=== PATIENT | male | born 1965 | race Caucasian/White ===

== ENCOUNTER → 2018-05-14 | Day surgery (SDC) | payer OTHER ==
[~2018-05-14] MED LIST: FENTANYL CITRATE/PF 100MCG/2 ML INJ ONE; HYOSCYAMINE SULFATE 0.5 MG/ML AMP ONE; MIDAZOLAM HCL 2 MG/2 ML VIAL ONE; PANTOPRAZOLE 40 MG 10ML VIAL ONE; PROPOFOL IV EMULSION 10 MG/ML 50 ML VIAL ONE; SYMAX DUOTAB0.375 MG; SYMAX0.125 MG PO
[2018-05-14 09:45] VITALS: BP 105/77
--- NOTE | 2018-05-14 10:03 | Operative Report ---
DATE OF PROCEDURE: May 14, 2018 REFERRING PHYSICIAN: Dr. Damien Addison PROCEDURES PERFORMED 1. Esophagogastroduodenoscopy with biopsies. 2. Colonoscopy with polypectomy and biopsies. INDICATIONS FOR EGD: Dyspepsia. INDICATIONS FOR COLONOSCOPY: Colorectal cancer screening. MEDICATION: Patient was done under MAC. Please see anesthesiologist's note. PROCEDURE: With the patient in the left lateral decubitus position, the flexible fiberoptic Olympus gastroscope was introduced into the esophagus under direct visualization without any difficulty. There was some patchy erythema noted in the distal esophagus. Minute tongues of velvety red mucosa were noted to extend proximally from the GE junction. Biopsies were obtained to rule out Ellis's. An approximately 4-mm nodule was noted at the GE junction and that was biopsied. The scope was then advanced with ease into the stomach traversing a small hiatal hernia. Mucosa overlying the antrum revealed multiple erosions and some with overlying black exudate compatible with recent hemorrhage. Biopsies were obtained. The pylorus was of normal contour and shape. It was intubated with ease. The scope was advanced all the way to the 2nd portion of the duodenum. The scope was then withdrawn slowly. Mucosa overlying the proximal 2nd portion appeared to be within normal limits. There was a focal nodularity noted in the posterior wall of the duodenal bulb and biopsies were obtained. The scope was then withdrawn back into the stomach and retroflexed. The mucosa overlying the fundus and the cardia appeared to be within normal limits. The scope was then straightened out. The stomach was decompressed. The scope was subsequently withdrawn. Patient tolerated the procedure well. IMPRESSION 1. Distal esophagitis. 2. Rule out Ellis's esophagus. 3. Approximately, 4-mm nodule at the gastroesophageal junction, biopsied. 4. Small hiatal hernia. 5. Gastritis, erosive, antrum. Biopsies obtained and sent to stain for Helicobacter pylori. 6. Focal nodularity of posterior wall of duodenal bulb, biopsied. PLAN: Follow up histology. Initiate Protonix 40 mg 1 p.o. q.a.m. a.c. Patient was then turned around. After adequate lubrication of the anal canal, a flexible fiberoptic Olympus colonoscope was inserted into the rectum with ease, and a large of full circumferential mass was noted that started at approximately 4 cm from the anal verge and extended all the way to approximately 11 cm or just close to the rectosigmoid area. Biopsies were obtained. The scope was then advanced with ease all the way to the cecum. It was then withdrawn slowly. Mucosa overlying the cecum appeared to be within normal limits. An approximately 1.2 cm sessile polypoid lesion in the mid-ascending colon was removed piecemeal per snare electrocautery and polypectomy site was hemoclipped. The rest of the ascending appeared to be within normal limits. Diverticular disease was noted to be scattered in the transverse, descending and sigmoid colon. Again, the previously described large rectal mass was noted on the way out. The scope was retroflexed. The area around the dentate line grossly appeared to be within normal limits. The scope was then straightened out. It was subsequently withdrawn. Patient tolerated the procedure well. IMPRESSION 1. Approximately, 1.2 cm sessile lesion in the mid-ascending colon, removed piecemeal per snare electrocautery and polypectomy site was hemoclipped prophylactically. 2. Diverticulosis. 3. Rectal mass, full circumferential extending from approximately 4 cm from the anal verge to just below the rectosigmoid area. Biopsies were obtained. PLAN: Follow up histology. Patient will need a CT scan of the abdomen and pelvis. General surgical/oncology referrals. The patient will need a followup colonoscopy in 1 year after surgery. Job#: [id number] MARS cc:DAMIEN ADDISON DO
== END | disposition home or self-care (01) ==
LOC: OR 05:58
PROVIDERS: ATTEND Internal Medicine Gastroenterology
DX: C20 Malignant neoplasm of rectum (principal); D12.2 Benign neoplasm of ascending colon; K29.00 Acute gastritis without bleeding; K29.50 Unspecified chronic gastritis without bleeding; K29.80 Duodenitis without bleeding; K21.0 Gastro-esophageal reflux disease with esophagitis; K22.70 Barrett's esophagus without dysplasia; K59.00 Constipation, unspecified; K57.30 Diverticulosis of large intestine without perforation or abscess without bleeding; K44.9 Diaphragmatic hernia without obstruction or gangrene; F17.210 Nicotine dependence, cigarettes, uncomplicated; Z01.810 Encounter for preprocedural cardiovascular examination
CPT/HCPCS: 43239; 45380; 45385; 93005; J1980; J2250; 45378

== ENCOUNTER → 2018-05-17 | Outpatient (CLI) | payer OTHER ==
[~2018-05-17] MED LIST changes: +DIATRIZOATE MEGL/DIATRIZOA SOD 30 ML BTL PO ONE; -FENTANYL CITRATE/PF 100MCG/2 ML INJ ONE; -HYOSCYAMINE SULFATE 0.5 MG/ML AMP ONE; +IOPAMIDOL 370 MG/ML 200 ML INFUS..BTL INJ ONE; -MIDAZOLAM HCL 2 MG/2 ML VIAL ONE; -PANTOPRAZOLE 40 MG 10ML VIAL ONE; -PROPOFOL IV EMULSION 10 MG/ML 50 ML VIAL ONE; +SODIUM CHLORIDE 0.9% 50ML 50 ML ONE
--- NOTE | 2018-05-17 09:09 | Diagnostic Imaging Report ---
PROCEDURE: CT ABDOMEN AND PELVIS WITH CONTRAST TECHNIQUE: The abdomen and pelvis were scanned utilizing a multidetector helical scanner from the diaphragm to the lesser trochanter after the IV administration of 100 cc of Isovue 370 and the oral administration of Gastrografin. Coronal and sagittal multiplanar reformations were obtained. COMPARISON: None. INDICATIONS: MID ASCENDING COLON LESION FINDINGS: LOWER THORAX: 2 mm juxtapleural nodular opacity along the right lower lobe partially visualized. Lung bases are otherwise unremarkable. HEPATOBILIARY: No focal hepatic lesion or intrahepatic biliary ductal dilatation. The gallbladder is unremarkable. SPLEEN: No splenomegaly. PANCREAS: No focal masses or ductal dilatation. ADRENALS: Fullness of the left adrenal gland without discrete nodule. No right adrenal nodule. KIDNEYS/URETERS: Subcentimeter hypoattenuating lesion in the left kidney, too small to further characterize but likely represent a small cyst. No hydronephrosis, calculi, or gross mass lesion. PELVIC ORGANS/BLADDER: Urinary bladder, prostate, and seminal vesicles are unremarkable. Vasectomty clips. PERITONEUM / RETROPERITONEUM: No ascites. No pneumoperitoneum. LYMPH NODES: No lymphadenopathy by size criteria; however, there are a few mildly prominent lymph nodes in the mesorectal fat, measuring 6 mm (series 2 image 80 and 9 mm series 2 image 75) VESSELS: The abdominal aorta is non-aneurysmal. The major branch vessels are patent without significant stenosis. Mild atherosclerotic calcification of the infrarenal abdominal aorta. Portal vein and splenic vein are patent. GI TRACT: Concentric wall thickening with adjacent stranding in the mesorectal fat involving the low rectum (series 2 image 82). Multiple sigmoid and descending colon diverticula without inflammatory change. Metallic clip within the ascending colon presumably corresponding to the endoscopically identified lesion. No discrete ascending colon mass is evident. The appendix is not identified and may have been removed. No small bowel dilatation to suggest obstruction. Large (4 cm) diverticulum projects superiorly from the fourth portion of the duodenum. BONES AND SOFT TISSUES: Soft tissue nodules in the subcutaneous gluteal fat may reflect injection granulomata. Otherwise no focal soft tissue abnormalities. No osseous destructive lesions. Degenerative disc changes and facet arthropathy the lumbar spine. IMPRESSION: Metallic clip within the lumen of the descending colon just superior to the ileocecal valve presumably related to biopsy of the reported endoscopically identified mass, which is not visualized by CT. Concentric rectal wall thickening with adjacent fat stranding and mildly enlarged regional lymph nodes is concerning for annular neoplasm, though proctitis may have a similar appearance. Correlation with recent colonoscopy is suggested. No evidence of intra-abdominal or pelvic metastatic disease. Dictated by: Damien Guerrier M.D. on 05/17/2018 at 9:16 Electronically approved by: Damien Guerrier M.D. on 05/17/2018 at 9:16
== END ==
LOC: CT 07:12
PROVIDERS: ATTEND Internal Medicine Gastroenterology
DX: K63.9 Disease of intestine, unspecified (principal)
CPT/HCPCS: 74177; Q9967